=== PATIENT | male | born 1985 | race African-American/Black ===

== ENCOUNTER 2017-11-21 21:06 | Emergency (ER) | payer OTHER ==
[~2017-11-21] VITALS: Ht 182.9 cm; Wt 106.6 kg
[2017-11-21 21:34] VITALS: BP 114/68
[2017-11-21] MEDS ORDERED: Norco 5mg/325mg tab PO ONE (21:45)
--- NOTE | 2017-11-21 21:46 | Emergency Room Report ---
History of Present Illness General Chief Complaint: Shoulder Injury Source: Patient Present Illness HPI 32-year-old male presents ED for evaluation. Patient states he tripped and fell down the stairs tonight at his house. Landed on his left shoulder. Presenting with left shoulder pain. Denies hitting his head or LOC. Pain is throbbing, 9 out of 10, nonradiating. States he is unable to raise his shoulder. Denies any other injuries. No other aggravating relieving factors. Denies any other associated symptoms Allergies: Coded Allergies: No Known Allergies (Unverified , 11/21/17) Patient History Past Medical History: none Past Surgical History: none Pertinent Family History: none Social History: Denies: smoking, alcohol use, drug use Immunizations: UTD Reviewed Nursing Documentation: PMH: Agreed; PSxH: Agreed Nursing Documentation-PMH Past Medical History: No Stated History Review of Systems All Other Systems: negative except mentioned in HPI Physical Exam Vital Signs Date Time Temp Pulse Resp B/P (MAP) Pulse Ox O2 Delivery O2 Flow Rate FiO2 11/21/17 21:30 97.7 80 15 114/68 98 Room Air 97.7 Sp02 EP Interpretation: reviewed, normal General Appearance: no apparent distress, alert, GCS 15, non-toxic Head: normocephalic Eyes: bilateral eye normal inspection, bilateral eye PERRL ENT: hearing grossly normal Neck: normal inspection Respiratory: normal inspection Cardiovascular #1: normal inspection Gastrointestinal: normal inspection Rectal: deferred Genitourinary: no CVA tenderness Musculoskeletal: decreased range of motion - L shoulder, tender Neurologic: alert, oriented x3, responsive, motor strength/tone normal, sensory intact, speech normal Psychiatric: normal inspection Skin: normal inspection Lymphatic: normal inspection Procedures Splinting Splinting : Consent: Verbal Splint: shoulder sling Pre-Proc Neuro Vasc Exam: normal Post-Proc Neuro Vasc Exam: normal Patient Tolerated: Well Complications: None Medical Decision Making Diagnostic Impression: Primary Impression: Shoulder injury Qualified Codes: S49.92XA - Unspecified injury of left shoulder and upper arm , initial encounter ER Course Hospital Course 32-year-old M presents to ED complaining of L shoulder pain s/p trip and fall Differential diagnoses include: Fracture, dislocation, sprain, contusion Clinical course Patient placed on stretcher. After initial history and physical, I ordered pain medications and Xrays of L shoulder Xrays read shows no acute fracture/dislocation. placed in shoulder sling On reassessment pain improved. Discussed findings with patient. Safe for discharge with close outpatient follow-up. we will provide orthopedic referral Diagnosis - shoulder injury Stable and discharged to home with prescription for Motrin, [place]. apply ice, keep elevated. weight bear as tolerated. Followup with ortho. Return to ED if symptoms recur or worsen Other X-Ray Diagnostic Results Other X-Ray Diagnostic Results : X-Ray ordered: L shoulder # of Views/Limited Vs Complete: 3 View Indication: Pain EP Interpretation: Yes Interpretation: no dislocation, no soft tissue swelling, no fractures Impression: No acute disease Electronically Signed by: Electronically signed by Lavon Sams MD Last Vital Signs Date Time Temp Pulse Resp B/P (MAP) Pulse Ox O2 Delivery O2 Flow Rate FiO2 11/21/17 21:30 97.7 80 15 114/68 98 Room Air 97.7 Status: improved Disposition: HOME, SELF-CARE Condition: Stable Scripts Hydrocodone Bit/Acetaminophen 5-325* (NORCO 5-325*) 1 Each Tablet 1 TAB ORAL Q6H PRN for For Pain, #10 TAB 0 Refills Prov: Lavon Sams MD 11/21/17 Ibuprofen* (MOTRIN*) 600 Mg Tablet 600 MG ORAL Q8H PRN for For Pain, #30 TAB 0 Refills Prov: Lavon Sams MD 11/21/17 Lavon Sams MD Nov 21, 2017 21:46
[2017-11-21] MEDS ORDERED: NORCO 5-325 TA1 EACH ORAL (23:16)
[2017-11-21] MEDS ORDERED: IBUPROFEN600 MG ORAL (23:16)
[2017-11-21 23:32] VITALS: BP 0/0
== END 2017-11-21 23:00 | disposition home or self-care (01) ==
LOC: EMR 21:35
DX: S49.92XA Unspecified injury of left shoulder and upper arm, initial encounter (principal); W10.9XXA Fall (on) (from) unspecified stairs and steps, initial encounter; Y93.89 Activity, other specified; Y92.018 Other place in single-family (private) house as the place of occurrence of the external cause
CPT/HCPCS: 29105; 99283